=== PATIENT | female | born 1990 | race Caucasian/White ===

== ENCOUNTER → 2018-10-27 | Outpatient (CLI) | payer OTHER ==
[~2018-10-27] MED LIST: ASPI81TA45 PO; CHOL200024 PO; FLUO20TA25 PO; IBUP-1484 PO; LEVO75TA PO; PNV1TABL4 PO; RIZA10TA20 PO; VITAMIN B2 PO; [UNRECOGNIZED DRUG - OTHER] PO; [UNRECOGNIZED DRUG - OTHER] PO
== END | disposition home or self-care (01) ==
LOC: STAR 09:12
PROVIDERS: ATTEND Specialist
DX: Z02.9 Encounter for administrative examinations, unspecified (principal)

== ENCOUNTER 2018-11-05 11:04 | Day surgery (SDC) | payer OTHER ==
[~2018-11-05] VITALS: Ht 177.8 cm; Wt 74.8 kg
[2018-11-05] MEDS ORDERED: LACTATED RINGERS 1,000 ML IV SCH (11:10)
[2018-11-05 11:27] VITALS: BP 107/75
[2018-11-05 11:40] LABS: HCG UR SG 1.018 (1.003-1.030)
[2018-11-05] MEDS ORDERED: FENTANYL PF 250 MCG/5ML ONE (13:45)
[2018-11-05] MEDS ORDERED: MIDAZOLAM 1 MG/ML, 2ML ONE (13:45)
[2018-11-05] MEDS ORDERED: ROCURONIUM 10MG/ML,5ML ONE (13:46)
[2018-11-05] MEDS ORDERED: PROPOFOL 10 MG/ML, 20ML ONE (13:46)
[2018-11-05] MEDS ORDERED: SUCCINYLCHOLINE 20 MG/ML, 10ML ONE (13:46)
[2018-11-05] MEDS ORDERED: DEXAMETHASONE 4 MG/ML, 1ML ONE ×2 (13:46)
[2018-11-05] MEDS ORDERED: ONDANSETRON 2MG/ML, 2ML ONE ×2 (13:46)
[2018-11-05] MEDS ORDERED: BUPIVACAINE/PF-EPI 0.5% 1:200K ONE (13:51)
[2018-11-05] MEDS ORDERED: METHYLENE BLUE 10 MG/ML 10ML ONE (13:59)
[2018-11-05] MEDS ORDERED: CEFAZOLIN 1,000 MG ONE (14:13)
[2018-11-05] MEDS ORDERED: MORPHINE SULFATE 4 MG/ML, 1ML IVPush PRN (15:00)
[2018-11-05] MEDS ORDERED: LABETALOL 5MG/ML, 20ML IV PRN (15:00)
[2018-11-05] MEDS ORDERED: PROMETHAZINE 25 MG/ML, 1ML IV PRN (15:00)
[2018-11-05] MEDS ORDERED: EPHEDRINE 50 MG/ML, 1ML IVPush PRN (15:00)
[2018-11-05] MEDS ORDERED: HYDROmorphone 2 MG/ML, 1ML IVPush PRN (15:00)
[2018-11-05] MEDS ORDERED: FENTANYL PF 100 MCG/2ML IV PRN (15:00)
[2018-11-05] MEDS ORDERED: PROMETHAZINE 12.5 MG SUPP PR PRN (15:00)
[2018-11-05] MEDS ORDERED: ALBUTEROL SULFATE 2.5 MG/3 ML NPPB PRN (15:00)
[2018-11-05] MEDS ORDERED: hydrALAzine 20 MG/ML, 1ML IV PRN (15:00)
[2018-11-05] MEDS ORDERED: ACETAMINOPHEN 325 MG TABLET PO PRN (15:00)
[2018-11-05] MEDS ORDERED: DIAZEPAM 5 MG/ML, 2ML IVPush PRN (15:00)
[2018-11-05] MEDS ORDERED: ONDANSETRON ODT 8 MG PO PRN (15:00)
[2018-11-05] MEDS ORDERED: MIDAZOLAM 1 MG/ML, 2ML IV PRN (15:00)
[2018-11-05] MEDS ORDERED: ONDANSETRON 2MG/ML, 2ML IV PRN (15:00)
[2018-11-05] MEDS ORDERED: HALOPERIDOL 5 MG/ML IV PRN (15:00)
[2018-11-05] MEDS ORDERED: MEPERIDINE/PF 25MG/0.5ML IVPush PRN ×2 (15:00→16:00)
[2018-11-05] MEDS ORDERED: OXYcodone 5 MG/5 ML ORAL.SOL UDC PO PRN (15:00)
[2018-11-05] MEDS ORDERED: KETOROLAC 30 MG/1 ML ONE (15:09)
[2018-11-05] MEDS ORDERED: FENTANYL PF 100 MCG/2ML ONE (15:15)
[2018-11-05] MEDS ORDERED: MEPERIDINE/PF 50 MG/ML ONE (15:53)
[2018-11-05] MEDS ORDERED: OXYcodone 5 MG/5 ML ORAL.SOL UDC ONE (16:01)
== END 2018-11-05 18:25 | disposition home or self-care (01) ==
LOC: OUT 11:04
PROVIDERS: ATTEND Specialist
DX: N80.1 Endometriosis of ovary (principal); N94.6 Dysmenorrhea, unspecified; N94.10 Unspecified dyspareunia; G43.909 Migraine, unspecified, not intractable, without status migrainosus
CPT/HCPCS: 58662; 81025; J0330; J0690; J1100; J1885; J2175; J2250; J2405; J2704; J3010; J7120; Q9968